=== PATIENT | male | born 1965 | race Caucasian/White ===

== ENCOUNTER 2016-09-08 16:42 | Observation (INO) | payer OTHER ==
[~2016-09-08] VITALS: Ht 182.9 cm; Wt 139.0 kg
[~2016-09-08 16:42] MED LIST: ATORVASTATIN CA40 MG PO; Allegra PO; CIPRO250 MG PO; CLEOCIN IV; Ecotrin PO; FLOMAX0.4 MG PO; GLIMEPIRIDE4 MG PO; Glucophage XR,Fortam PO; HYDROCHLOROTHIA25 MG PO; Hydrodiuril,Oretic,E PO; LOTENSIN20 M1 PO; LOVENOX40 MG/0.4 SC; METFORMIN HCL750 MG PO; NORVASC10 MG PO; Percocet 10/325,Endo PO; Pred Forte 1%,Omnipr BOTH EYES; VALIUM5 MG PO; WELLBUTRIN SR100 MG PO; Xanax PO; ZOLOFT25 MG PO; [UNRECOGNIZED DRUG - REMARK]
[2016-09-08 18:16] LABS: BASOPHIL COUNT 0.1 K/uL (0-0.1); EOSINOPHIL (%) 3.7 % (0-5); EOSINOPHIL COUNT 0.4 K/uL (0-0.3); HEMATOCRIT 47.8 % (38.0-50.0); IMMATURE GRANULOCYTE (%) 1.2 % (0.0-0.7); IMMATURE GRANULOCYTE COUNT 0.1 K/uL; INSTRUMENT ABS NEUTROPHIL CT 6.2 K/uL; LYMPHOCYTE COUNT 2.7 K/uL (1.0-2.8); MCH 29.5 PG (29.0-34.0); MCHC 34.1 G/DL (30.0-36.0); MCV 86.6 FL (86-99); MEAN PLAT.VOLUME 10.5 uM^3 (9.0-12.4); MONOCYTE (%) 9.2 % (3-12); NEUTROPHIL (%) 59.2 % (45-76); NEUTROPHIL COUNT 6.2 K/uL (1.8-6.4); PLATELET COUNT 248 K/uL (156-360); RBC DIS.WIDTH-CV 13.6 % (11.8-14.6); RBC DIS.WIDTH-SD 42.6 % (39-53); RED BLOOD COUNT 5.52 M/uL (4.00-5.50); WHITE BLOOD COUNT 10.5 K/uL (4.1-10.2)
[2016-09-08 18:25] LABS: CHLORIDE 105 mEq/L (99-109); SODIUM 141 mEq/L (136-147)
[2016-09-08 18:26] LABS: MAGNESIUM 1.8 mg/dL (1.3-2.7)
[2016-09-08 18:27] LABS: GLUCOSE 152 mg/dL (70-99)
[2016-09-08 18:29] LABS: ANION GAP 11 MEQ/L (2-14)
[2016-09-08 18:31] LABS: GFR ESTIMATE (CALCULATED) > 59 mL/min/
[2016-09-08 18:32] LABS: UREA NITROGEN (BUN) 19 mg/dL (9-23)
[2016-09-08 18:38] LABS: TROP-I INTERPRETATION NEGATIVE; TROPONIN-I < 0.01 ng/mL (0.0-0.30)
[2016-09-08 18:43] LABS: D-DIMER ELISA 0.24 mg/L FEU (< 0.57); PTT 25.3 (25-32)
[2016-09-08] MEDS ORDERED: LOTENSIN40 MG PO (20:24)
[2016-09-08] MEDS ORDERED: NORVASC5 MG PO (20:24)
[2016-09-08] MEDS ORDERED: METFORMIN HCL750 MG PO (20:25)
[2016-09-08] MEDS ORDERED: CLARITIN,ALAVAR10 MG PO (20:26)
[2016-09-08] MEDS ORDERED: ZYRTEC10 M3 PO (20:26)
[2016-09-08] MEDS ORDERED: ELOCON 0.1% OIN15 GM TP (20:26)
[2016-09-08] MEDS ORDERED: TRADJENTA5 MG PO (20:26)
[2016-09-08] MEDS ORDERED: CYANOCOBALAM1000 MCG PO (20:26)
[2016-09-08] MEDS ORDERED: EUCRISA60 GM TP (20:27)
[2016-09-08 23:27] VITALS: BP 134/84
[2016-09-08 23:46] LABS: TROP-I INTERPRETATION NEGATIVE; TROPONIN-I < 0.01 ng/mL (0.0-0.30)
[2016-09-09 04:34] VITALS: BP 124/64
[2016-09-09 05:46] LABS: HEMATOCRIT 46.7 % (38.0-50.0); MCH 29.1 PG (29.0-34.0); MCHC 33.6 G/DL (30.0-36.0); MCV 86.6 FL (86-99); MEAN PLAT.VOLUME 10.6 uM^3 (9.0-12.4); PLATELET COUNT 244 K/uL (156-360); RBC DIS.WIDTH-CV 13.5 % (11.8-14.6); RBC DIS.WIDTH-SD 42.7 % (39-53); RED BLOOD COUNT 5.39 M/uL (4.00-5.50); WHITE BLOOD COUNT 11.5 K/uL (4.1-10.2)
[2016-09-09 06:07] LABS: ALKALINE PHOSPHATASE 40 IU/L (3-129); ANION GAP 11 MEQ/L (2-14); CHLORIDE 103 MEQ/L (99-109); GFR ESTIMATE (CALCULATED) > 59 mL/min/; GLUCOSE 152 mg/dL (70-99); POTASSIUM 3.6 MEQ/L (3.7-5.4); SAMPLE HEMOLYSIS CHECK 0; SAMPLE ICTERIC CHECK 0; SAMPLE LIPEMIA CHECK 0; SODIUM 141 MEQ/L (136-147); TOTAL BILIRUBIN 0.9 MG/DL (0.0-1.0); UREA NITROGEN (BUN) 16 mg/dL (9-23)
[2016-09-09 06:12] LABS: TROP-I INTERPRETATION NEGATIVE; TROPONIN-I < 0.01 ng/mL (0.0-0.30)
[2016-09-09 08:29] LABS: POINT-OF-CARE METER ID UU13113831
[2016-09-09 09:45] VITALS: BP 124/75
[2016-09-09 10:20] LABS: Estimated Average Glucose 183 mg/dL (70-123)
[2016-09-09] MEDS ORDERED: ASPIR-LOW81 MG PO (11:14)
[2016-09-09 12:25] VITALS: BP 126/77
[2016-09-09 12:31] LABS: POINT-OF-CARE METER ID UU13113700
== END 2016-09-09 13:20 | disposition home or self-care (01) ==
LOC: EME 16:42 → EDOF 22:09 → 5WEST 22:09 → EDOF 22:09 → 5WEST 22:55
PROVIDERS: Emergency Medicine; Hospitalist; Internal Medicine
DX: R07.89 Other chest pain (principal); E11.9 Type 2 diabetes mellitus without complications; Z79.84 Long term (current) use of oral hypoglycemic drugs; I10 Essential (primary) hypertension; K21.9 Gastro-esophageal reflux disease without esophagitis; E66.9 Obesity, unspecified; Z68.41 Body mass index [BMI] 40.0-44.9, adult; F41.9 Anxiety disorder, unspecified
CPT/HCPCS: 71010; 80048; 80053; 82948; 83036; 83735; 84484; 85025; 85027; 85379; 85610; 85730; 93005; G0378; J1644; J1815